=== PATIENT | female | born 1955 | race Caucasian/White ===

== ENCOUNTER 2018-02-12 09:34 | Day surgery (SDC) | payer MEDICARE, BC ==
[~2018-02-12 09:34] MED LIST: FENTANYL CITRATE INJ/PF 100 MCG/2 ML AMPUL ONE; LIDOCAINE 2% INJ-PF (20 MG/ML) 10 ML AMPUL ONE; MIDAZOLAM 2 MG/2 ML INJ ONE; ONDANSETRON HCL INJ/PF 4 MG/2 ML SDV ONE; PROPOFOL INJ 200 MG/20 ML VIAL IV ONE
[2018-02-12 11:09] LABS: ANION GAP 11 (5-19); BLOOD UREA NITROGEN 15 mg/dL (7-20); CALCIUM 9.2 mg/dL (8.4-10.2); CARBON DIOXIDE 28 mmol/L (22-30); CHLORIDE 103 mmol/L (98-107); GLUCOSE 87 mg/dL (75-110); POTASSIUM 4.2 mmol/L (3.6-5.0); SODIUM 142.3 mmol/L (137-145)
[2018-02-12] MEDS ORDERED: PROPOFOL INJ 200 MG/20 ML VIAL IV ONE (12:13)
[2018-02-12] MEDS ORDERED: ONDANSETRON HCL INJ/PF 4 MG/2 ML SDV IV PRN (12:36)
[2018-02-12] MEDS ORDERED: FENTANYL CITRATE INJ/PF 100 MCG/2 ML AMPUL IV PRN ×3 (12:36)
[2018-02-12] MEDS ORDERED: DIPHENHYDRAMINE HCL 50 MG/ML VIAL IV PRN (12:36)
--- NOTE | 2018-02-12 13:54 | Operative Report ---
Operative Report DATE OF SURGERY: 02/12/18 Operative Report: The risks, benefits and alternatives of the procedure including risks of bleeding, perforation requiring surgery are explained to the patient in detail and informed consent is obtained. Patient is brought back to the operating room and placed in the left, lateral decubital position. Timeout was called. Propofol medication is administered. A rectal examination is done which did not reveal any masses, tears or fissures. An Olympus videoscope was inserted into the patient's rectum. The scope was then carefully advanced all the way to the cecum. The cecum was identified by the usual anatomical landmarks including the ileocecal valve as well as the appendiceal office. Photodocumentation is obtained. The scope was then sequentially pulled back via the various segments of the colon including the ascending colon, hepatic flexure, transverse colon, splenic flexure, descending colon and finally into the rectosigmoid portions of the colon. Retroflexion maneuvers performed. The risks benefits and alternatives of the procedure explained to the patient in detail and informed consent is obtained.A GIF Olympus video scope was inserted into the patient's mouth and hypopharynx, the esophagus is identified intubated and insufflated ,the scope was then advanced through the esophagus stomach and duodenum ,retroflexion maneuver is done, the esophagus stomach and first and second portions of the duodenum examined PREOPERATIVE DIAGNOSIS: Iron deficiency anemia. Colorectal cancer screening POSTOPERATIVE DIAGNOSIS: Gastritis status post biopsy rule out Helicobacter pylori. Duodenitis. Right colon inflammation status post biopsy. Internal hemorrhoids. No actively bleeding site OPERATION: Colonoscopy with biopsy. EGD with biopsy SURGEON: RUSS THACKER ANESTHESIA: LMAC TISSUE REMOVED OR ALTERED: As noted above. COMPLICATIONS: None. ESTIMATED BLOOD LOSS: None. INTRAOPERATIVE FINDINGS: As noted above. PROCEDURE: Patient tolerated procedure well. No immediate postprocedure complications are noted. Patient discharged in good condition. Discharge date 02/12/2018. Discharge diet: Regular. Discharge activity: Regular. 2-3 week follow-up to discuss findings. Patient is instructed to call the office or proceed to the emergency room should there be any further problems or questions. We will await on the pathology.
[2018-02-12 13:57] VITALS: BP 123/44
== END 2018-02-12 14:05 | disposition home or self-care (01) ==
LOC: OROUT 09:34
PROVIDERS: ATTEND Internal Medicine Gastroenterology
PROC: 0DB68ZX Excision of Stomach, Via Natural or Artificial Opening Endoscopic, Diagnostic (ICD-10-PCS; principal; 2018-02-12 11:30)
PROC: 0DBE8ZX Excision of Large Intestine, Via Natural or Artificial Opening Endoscopic, Diagnostic (ICD-10-PCS; 2018-02-12 11:30)
DX: Z12.11 Encounter for screening for malignant neoplasm of colon (principal); D50.9 Iron deficiency anemia, unspecified; K29.70 Gastritis, unspecified, without bleeding; K29.80 Duodenitis without bleeding; K52.9 Noninfective gastroenteritis and colitis, unspecified; K64.8 Other hemorrhoids
CPT/HCPCS: 43239; 45380; 36415; 80048; 88305 ×2; J2704; J3490; 813; J2250; J2405; J3010

== ENCOUNTER 2018-02-13 08:58 | Day surgery (SDC) | payer MEDICARE, BC ==
[2018-02-13 09:37] LABS: HEMOGLOBIN 8.2 g/dL (12.0-15.5); MEAN CORPUSCULAR HEMOGLOBIN 36.9 pg (27.0-33.4); MEAN CORPUSCULAR HGB CONC 35.5 g/dL (32.0-36.0); MEAN CORPUSCULAR VOLUME 104 fl (80-97); PLATELET COUNT 271 10^3/uL (150-450); RED BLOOD COUNT 2.21 10^6/uL (3.72-5.28); RED CELL DISTRIBUTION WIDTH 22.2 % (11.5-14.0); WHITE BLOOD COUNT 4.1 10^3/uL (4.0-10.5)
[2018-02-13 09:41] LABS: INTERNATIONAL RATION (INR) 1.06; PROTHROMBIN TIME 14.3 SEC (11.4-15.4)
[2018-02-13 09:42] LABS: PARTIAL THROMBOPLASTIN TIME 29.2 SEC (23.5-35.8)
[2018-02-13] MEDS ORDERED: FENTANYL CITRATE INJ/PF 250 MCG/5 ML AMPULE ONE (11:12)
[2018-02-13] MEDS ORDERED: MIDAZOLAM 2 MG/2 ML INJ ONE (11:12)
[2018-02-13] MEDS ORDERED: LIDOCAINE 1% INJ-PF (10 MG/ML) 30 ML SDV ONE (11:12)
[2018-02-13] MEDS ORDERED: ONDANSETRON 4 MG TAB.RAPDIS ONE (12:31)
--- NOTE | 2018-02-13 12:40 | RADIOLOGY REPORT (SQ) ---
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 TECHNIQUE: CT guided biopsy of the right iliac crest bone marrow performed with conscious sedation. CT Fluoroscopy Time: 3.[address] scanners at this facility use dose modulation, iterative reconstruction, and/or weight based d osing when appropriate to reduce radiation dose to as low as reasonably achievable (ALARA). [facility]: Dose Right [facility]: CareDose [facility]: Dose Right [facility]: Teradose 4D [facility]: Ifinity RADIATION DOSE: mGy. FINDINGS: After obtaining informed consent and explaining the risks and benefits of conscious sedati on,the patient agreed to the procedure. Prior to the procedure, a time out was performed to verify th e patient's identity and planned procedure. IV conscious sedation was administered and physician direction by the registered nurse using 1 millig marcellus of Versed and 50 micrograms of fentanyl. Physiologic monitoring was provided before, during, and after sedation. The total sedation time was 30 minutes. Documentation face to face time, the performing proceduralist, spent monitoring the patient: [address] scanning was performed to localize the percutaneous site for the biopsy approach. After sterile skin prep and local lidocaine for skin and deep tissue anesthesia, a coaxial biopsy nee dle was used to obtain a bone marrow aspirate, and a bone marrow core of tissue. The biopsy tissue wa s received by [facility] lab to be sent out for evaluation. There were no immediate complications. Pathology is pending at the time of dictation. IMPRESSION: CT GUIDED ASPIRATE AND CORE BIOPSY OF THE RIGHT POSTERIOR ILIAC CREST BONE MARROW PERFOR MED WITHOUT IMMEDIATE COMPLICATION. PATHOLOGY PENDING. IV CONSCIOUS SEDATION WITHOUT COMPLICATION. COMMENT: Quality ID 145: Final reports for procedures using fluoroscopy that document radiation exp osure indices, or exposure time and number of fluorographic images (if radiation exposure indices are not available) Patient medication list reviewed: Yes- Quality ID# [id number]:Eligible professional attests to documenting i n the medical record they obtained, updated, or reviewed the patient's current medications.. TECHNICAL DOCUMENTATION: JOB ID: [id number] Quality ID# [id number]: Final reports with documentation of one or more dose reduction techniques (e.g., Aut omated exposure control, adjustment of the mA and/or kV according to patient size, use of iterative r econstruction technique) 2010 [employer]- All Rights Reserved Reading location - IP/workstation name: [email or web address]
--- NOTE | 2018-02-13 12:40 | RADIOLOGY REPORT (SQ) ---
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 TECHNIQUE: CT guided biopsy of the right iliac crest bone marrow performed with conscious sedation. CT Fluoroscopy Time: 3.[address] scanners at this facility use dose modulation, iterative reconstruction, and/or weight based d osing when appropriate to reduce radiation dose to as low as reasonably achievable (ALARA). [facility]: Dose Right [facility]: CareDose [facility]: Dose Right [facility]: Teradose 4D [facility]: [employer] RADIATION DOSE: mGy. FINDINGS: After obtaining informed consent and explaining the risks and benefits of conscious sedati on,the patient agreed to the procedure. Prior to the procedure, a time out was performed to verify th e patient's identity and planned procedure. IV conscious sedation was administered and physician direction by the registered nurse using 1 millig marcellus of Versed and 50 micrograms of fentanyl. Physiologic monitoring was provided before, during, and after sedation. The total sedation time was 30 minutes. Documentation face to face time, the performing proceduralist, spent monitoring the patient: [address] scanning was performed to localize the percutaneous site for the biopsy approach. After sterile skin prep and local lidocaine for skin and deep tissue anesthesia, a coaxial biopsy nee dle was used to obtain a bone marrow aspirate, and a bone marrow core of tissue. The biopsy tissue wa s received by [facility] lab to be sent out for evaluation. There were no immediate complications. Pathology is pending at the time of dictation. IMPRESSION: CT GUIDED ASPIRATE AND CORE BIOPSY OF THE RIGHT POSTERIOR ILIAC CREST BONE MARROW PERFOR MED WITHOUT IMMEDIATE COMPLICATION. PATHOLOGY PENDING. IV CONSCIOUS SEDATION WITHOUT COMPLICATION. COMMENT: Quality ID 145: Final reports for procedures using fluoroscopy that document radiation exp osure indices, or exposure time and number of fluorographic images (if radiation exposure indices are not available) Patient medication list reviewed: Yes- Quality ID# [id number]:Eligible professional attests to documenting i n the medical record they obtained, updated, or reviewed the patient's current medications.. TECHNICAL DOCUMENTATION: JOB ID: [id number] Quality ID# [id number]: Final reports with documentation of one or more dose reduction techniques (e.g., Aut omated exposure control, adjustment of the mA and/or kV according to patient size, use of iterative r econstruction technique) 2010 [employer]- All Rights Reserved Reading location - IP/workstation name: [email or web address]
[2018-02-13 17:58] VITALS: BP 111/54
== END 2018-02-13 14:00 | disposition home or self-care (01) ==
LOC: RAD 08:58
PROVIDERS: ATTEND Internal Medicine Medical Oncology
DX: D46.9 Myelodysplastic syndrome, unspecified (principal); D63.8 Anemia in other chronic diseases classified elsewhere; Z87.891 Personal history of nicotine dependence
CPT/HCPCS: 36415; 85027; 85610; 85730; 38221; 77012; J2250; A9270; J3010; J3490; S0119

== ENCOUNTER 2018-06-19 11:36 | Observation (INO) | payer MEDICARE, BC ==
[2018-06-19] MEDS ORDERED: ASPIRIN 81 MG TABLET, CHEWABLE PO ONE (11:51)
[2018-06-19 12:29] LABS: HEMATOCRIT 26.6 % (36.0-47.0); HEMOGLOBIN 9.2 g/dL (12.0-15.5); MEAN CORPUSCULAR HGB CONC 34.5 g/dL (32.0-36.0); MEAN CORPUSCULAR VOLUME 104 fl (80-97); PLATELET COUNT 273 10^3/uL (150-450); RED BLOOD COUNT 2.55 10^6/uL (3.72-5.28); RED CELL DISTRIBUTION WIDTH 25.4 % (11.5-14.0); WHITE BLOOD COUNT 5.1 10^3/uL (4.0-10.5)
[2018-06-19 12:31] LABS: INTERNATIONAL RATION (INR) 4.45; PROTHROMBIN TIME 44.4 SEC (11.4-15.4)
--- NOTE | 2018-06-19 12:44 | RADIOLOGY REPORT (SQ) ---
EXAM DESCRIPTION: CHEST SINGLE VIEW COMPLETED DATE/TIME: 06/19/2018 12:30 pm REASON FOR STUDY: cp COMPARISON: None. EXAM PARAMETERS: NUMBER OF VIEWS: One view. TECHNIQUE: Single frontal radiographic view of the chest acquired. RADIATION DOSE: NA LIMITATIONS: None. FINDINGS: LUNGS AND PLEURA: No opacities, masses or pneumothorax. No pleural effusion. MEDIASTINUM AND HILAR STRUCTURES: No masses. Contour normal. HEART AND VASCULAR STRUCTURES: Cardiomegaly. Normal vasculature. BONES: No acute findings. HARDWARE: CABG. OTHER: No other significant finding. IMPRESSION: NO ACUTE RADIOGRAPHIC FINDING IN THE CHEST. TECHNICAL DOCUMENTATION: JOB ID: [id number] [employer]- All Rights Reserved Reading location - IP/workstation name: [email or web address]
[2018-06-19 12:47] LABS: ALANINE AMINOTRANSFERASE 19 U/L (9-52); ALBUMIN 3.8 g/dL (3.5-5.0); ALKALINE PHOSPHATASE 43 U/L (38-126); ANION GAP 11 (5-19); ASPARTATE AMINO TRANSFERASE 20 U/L (14-36); BILIRUBIN,DIRECT 0.3 mg/dL (0.0-0.4); BLOOD UREA NITROGEN 21 mg/dL (7-20); CALCIUM 8.5 mg/dL (8.4-10.2); CARBON DIOXIDE 25 mmol/L (22-30); CHLORIDE 103 mmol/L (98-107); GLUCOSE 103 mg/dL (75-110); POTASSIUM 4.4 mmol/L (3.6-5.0); SODIUM 138.9 mmol/L (137-145)
[2018-06-19 12:48] LABS: CREATINE KINASE < 20 U/L (30-135)
[2018-06-19 12:49] LABS: ABSOLUTE LYMPHOCYTES# (MANUAL) 0.3 10^3/uL (0.5-4.7); ABSOLUTE MONOCYTES # (MANUAL) 0.2 10^3/uL (0.1-1.4); ABSOLUTE NEUTROPHILS# (MANUAL) 4.5 10^3/uL (1.7-8.2); ANISOCYTOSIS 3+; BASOPHILS % (MANUAL) 0 % (0-2); EOSINOPHILS % (MANUAL) 1 % (0-6); LYMPHOCYTES % (MANUAL) 6 % (13-45); MONOCYTES % (MANUAL) 4 % (3-13); OVALOCYTES 2+; POIKILOCYTOSIS 2+; SCHISTOCYTES SLIGHT; SEGMENTED NEUTROPHILS % (MAN) 89 % (42-78); TEAR DROP CELLS 1+; TOTAL CELLS COUNTED 100; TOXIC GRANULATION SLIGHT
[2018-06-19 12:50] LABS: HYPOCHROMASIA SLIGHT; PLATELET CLUMPS PRESENT; POLYCHROMASIA SLIGHT
[2018-06-19 12:55] LABS: CREATINE KINASE MB 0.34 ng/mL (<4.55); TROPONIN I < 0.012 ng/mL
--- NOTE | 2018-06-19 12:56 | ER Document Report ---
ED Cardiac - General Chief Complaint: Chest Pain Stated Complaint: CHEST PAIN Notes: Patient arrived by ambulance with chest pains. She was at her oncologist office today receiving IV chemotherapy for MDS, myelodysplasia, pre-leukemic condition. She has received 2 other treatments earlier this week without any problems. She was about fdc through her chemo for today when she began to develop "indigestion" pain in the mid substernal region of the chest. Staff at the office gave her Zofran. She began to feel dizzy, got clammy and pale, felt like she could not take a deep breath. Her blood pressure dropped and she normally runs a low blood pressure anyway. She was nauseated but never vomited. Last normal bowel movement was this morning. Did not have any shortness of breath or difficulty breathing. EMS was called and transported the patient here to the ED. Patient says her symptoms began to feel less and feeling better as she arrived in the emergency department. Currently patient says she is feeling back to close to normal. Patient ate a bowl of raisin bran cereal this morning at 9 AM before going for her scheduled appointment for chemo at 10:00. She was getting the chemo, starting about 1030 and was about fdc through the procedure around 11:00 when her symptoms began. Patient has a history of mitral valve replacement 18 years ago and is on Coumadin. She had rheumatic fever as a child. Her cap maker is Dr. Sami Mendez in [place] [phone]. Patient had ablation therapy for atrial fibrillation in 2014. TRAVEL OUTSIDE OF THE [place] IN LAST 30 DAYS: No - Related Data Allergies/Adverse Reactions: No Known Allergies Allergy (Verified 06/19/18 12:08) Past Medical History - Social History Smoking Status: Never Smoker Chew tobacco use (# tins/day): No Frequency of alcohol use: None Drug Abuse: None Family History: Reviewed & Not Pertinent Patient has suicidal ideation: No Patient has homicidal ideation: No - Past Medical History Cardiac Medical History: Reports: Hx Atrial Fibrillation, Hx Congestive Heart Failure GI Medical History: Reports: Hx Gastroesophageal Reflux Disease Musculoskeletal Medical History: Reports Hx Arthritis - LT SHOULDER Past Surgical History: Reports: Hx Cardiac Surgery - x3 valve replacements, Hx Section - x2, Hx Cholecystectomy, Hx Orthopedic Surgery - left knee - Immunizations Hx Diphtheria, Pertussis, Tetanus Vaccination: - UNSURE Hx Pneumococcal Vaccination: 08/05/17 Review of Systems - Review of Systems Notes: REVIEW OF SYSTEMS: CONSTITUTIONAL : Denies fever. Says she runs a low blood pressure normally, often in the 90s/60s. EENT: Denies eye, ear, nose or mouth or throat pain or other symptoms. CARDIOVASCULAR: See HPI. RESPIRATORY: Denies cough, chest congestion, or shortness of breath. GASTROINTESTINAL: Denies abdominal pain or vomiting, or diarrhea. [place] some nausea but did not vomit. GENITOURINARY: Denies difficulty or painful urinating, urinary frequency, blood in urine. MUSCULOSKELETAL: Denies back or neck pain. Denies joint pain or swelling. SKIN: Denies rash or skin lesions. NEUROLOGICAL: Denies LOC or altered mental status. Denies headache. Denies sensory loss or motor deficits. ALL OTHER SYSTEMS REVIEWED AND NEGATIVE. Physical Exam - Vital signs Vitals: Pulse Ox 99 06/19/18 11:38 Interpretation: Normal Notes: PHYSICAL EXAMINATION: GENERAL: Well-appearing, in no acute distress. Vital signs all normal. HEAD: Atraumatic, normocephalic. EYES: Pupils equal round and reactive to light, extraocular movements intact. ENT: oropharynx clear without exudates. Moist mucous membranes. NECK: Normal range of motion, supple. LUNGS: Breath sounds clear and equal bilaterally. HEART: Regular rate and rhythm without murmurs. ABDOMEN: Soft, nontender. No guarding or rebound. No masses. BACK: No tenderness throughout entire back. EXTREMITIES: Normal range of motion without pain. NEUROLOGICAL: Normal speech, normal gait. Normal sensory, motor, and reflex exams. Awake, alert, and oriented x3. PSYCH: Normal mood, normal affect. SKIN: Warm, dry, no rashes. Course - Re-evaluation Re-evalutation: 06/19/18 17:[address] Acosta, and associate cardiology of Dr. Gardner in [place] and we went over the patient's presentation and, in particular, her EKG. The machine reads her EKG is showing accelerated junctional escape rhythm. She had a similar EKG at the cap maker office a week ago. It was determined that it actually is a sinus rhythm with a very short P waves, almost undetectable. I texted a copy of this patient's EKG to Dr. Acosta who looked at it and call me back and said he was certain that this is also a sinus rhythm not an accelerated junctional rhythm. Dr. Acosta said he was not concerned about this rhythm causing any problems for the patient. 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 Also noted is the patient had ablation therapy for atrial fibrillation. She has had her mitral valve replaced with a mechanical valve 18 years ago and is on long-term Coumadin therapy. 06/19/18 18:21 Patient reevaluated. Blood pressure remains in the 90s but patient is not in shock. Her hemoglobin is low, but it was loerw on a previous CBC in February. I think this is her normal variation of blood pressure for a person only weighs 58 kg. Patient says that she feels much better now that she got some crackers to snack on. Discussed with patient the results of her tests and the fact that she probably has not had a heart attack. However, I still recommended that she be monitored overnight to make sure that she was safe to go home tomorrow. Incidentally, tomorrow is patient's birthday. - Vital Signs Vital signs: Temp Pulse Resp BP Pulse Ox 97.8 F 70 17 131/56 H 100 06/20/18 08:00 06/20/18 08:00 06/20/18 08:00 06/20/18 08:00 06/20/18 08:00 - Laboratory Result Diagrams: 06/20/18 04:39 06/20/18 04:39 Laboratory results interpreted by me: 06/19/18 06/19/18 06/19/18 11:56 11:56 11:56 RBC 2.55 L Hgb 9.2 L Hct 26.6 L MCV 104 H MCH 36.0 H RDW 25.4 H Seg Neuts % (Manual) 89 H Lymphocytes % (Manual) 6 L Abs Lymphs (Manual) 0.3 L PT 44.4 H BUN 21 H Total Bilirubin 2.0 H Creatine Kinase < 20 L Total Protein 6.0 L - Diagnostic Test Radiology results interpreted by me: 06/19/18 17:21 Chest x-ray essentially normal. - EKG Interpretation by Me EKG shows normal: Sinus rhythm Rate: Normal Rhythm: NSR Critical Care Note - Critical Care Note Total time excluding time spent on procedures (mins): 50 Discharge - Discharge Clinical Impression: Chest pain Qualifiers: Chest pain type: unspecified Qualified Code(s): R07.9 - Chest pain, unspecified Condition: Stable Disposition: ADMITTED OBSERVATION Admitting Provider: Hospitalist Unit Admitted: Telemetry
[2018-06-19] MEDS ORDERED: NORMAL SALINE 1000 ML 1,000 ML IV ONE (15:08)
[2018-06-19] MEDS ORDERED: TEMAZEPAM 7.5 MG CAPSULE PO PRN (19:48)
[2018-06-19] MEDS ORDERED: MAG HYDROX/AL HYDROX/SIMETH SUSP 30 ML UDCUP PO PRN (19:48)
[2018-06-19] MEDS ORDERED: ACETAMINOPHEN 325 MG TABLET PO PRN (19:48)
[2018-06-19] MEDS ORDERED: ONDANSETRON HCL INJ/PF 4 MG/2 ML SDV IV PRN (19:48)
[2018-06-19] MEDS ORDERED: NORMAL SALINE 1000 ML 1,000 ML IV PRN (19:48)
[2018-06-19] MEDS ORDERED: PROMETHAZINE HCL 25 MG TABLET PO PRN (19:48)
[2018-06-19] MEDS ORDERED: PANTOPRAZOLE SODIUM 40 MG VIAL IV STA (19:48)
[2018-06-19] MEDS ORDERED: MORPHINE SULFATE 10 MG/ML INJ IV PRN (19:54)
[2018-06-19] MEDS ORDERED: [UNRECOGNIZED DRUG - OTHER] SQ SCH (20:00)
[2018-06-19] MEDS ORDERED: DARBEPOETIN ALFA SQ SCH (20:00)
--- NOTE | 2018-06-19 20:40 | PDOC H&P ---
History of Present Illness Admission Date/PCP: 06/19/18 19:10 CHRIS CRUZ PA-C Patient complains of: Chest pain History of Present Illness: RAGHU JARAMILLO is a 62 year old female with medical history remarkable for coronary artery disease, CHF, mechanical valve on Coumadin, atrial fibrillation. Patient has been recently diagnosed with MDS and started with chemotherapy 2 days ago, the first day she was feeling indigestion like his symptoms and was given Zofran, his symptoms improved. Today she had chemotherapy again around 10:30 in the morning and have white to the chemo and while she was laying down started feeling shortness of breath and chest pain that is started under her right breast radiated to the center of her chest, like an elephant sitting on her chest, symptoms worsen with deep inspiration and was up to 7 out of 10 in intensity. It was associated with dizziness and lightheadedness, at some point the patient felt like passing out, became very pale and her blood pressure was taken, it was 85/50. Denies diaphoresis, was feeling nauseous but did not vomit, has chronic diarrhea and has not changed, denies dysuria, hematuria, frequency, fever, chills. 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 Mendze in [place] [phone]; her last stress test was a little more than a year ago, patient was told that she has the circumflex artery blocked but is too small to have a stent placed/ chronic occlusion. Patient has lost 5 pounds in less than a month. Oncologist First set of troponins negative, EKG unremarkable, and daily given 324 mg of p.o. aspirin, already given Zofran in the oncology clinic. Emergency wrist contacted Dr. Acosta who is analysis with cardiology of Dr. Mendez in [place] and reviewed the patient's presentation and EKG, it was determined that her rhythm was sinus with very small P waves. Tomorrow is patients. She would like to go home early if tests are negative Past Medical History Cardiac Medical History: Reports: Atrial Fibrillation - Paroxysmal, Congestive Heart Failure - EF of apparently 40%, Coronary Artery Disease - Chronic occlusion circumflex artery Neurological Medical History: Reports: Ischemic CVA Malignancy Medical History: Reports: Other - MDS GI Medical History: Reports: Gastroesophageal Reflux Disease Musculoskeltal Medical History: Reports: Arthritis - LT SHOULDER Hematology: Reports: Anemia Past Surgical History Past Surgical History: Reports: Cardiac Catheterization, Section - x2, Cholecystectomy, Coronary Artery Bypass Graft - X3, has a mechanical valve, Orthopedic Surgery - left knee, Other - Cardiac ablation Anterior cervical discectomy Breast lumpectomy C-sectio Social History Smoking Status: Former Smoker - 29 years ago, used to smoke 1-1/2 pack a day Frequency of Alcohol Use: None Hx Recreational Drug Use: No Hx Prescription Drug Abuse: No Past Social History Note: Lives with her who is at the bedside Family History Family History: Reviewed & Not Pertinent Family History: Mother at 77 years old with COPD. Father at 85 years old, history of bladder cancer and quadruple bypass when he was 83 years old, grandmother on his father's side pancreatic cancer, grandmother on her mother's side with bladder cancer Parental Family History Reviewed: Yes - As above Children Family History Reviewed: NA Sibling(s) Family History Reviewed.: NA Medication/Allergy Home Medications: Furosemide [Lasix 40 mg Tablet] 40 mg PO QAM 10/01/13 Potassium Chloride 10 meq PO DAILY 10/01/13 Warfarin Sodium [Coumadin 5 mg Tablet] 4 mg PO QHS 10/01/13 Dofetilide [Tikosyn] 1 tab PO BID 02/11/18 Metoprolol Succinate [Toprol Xl] 25 mg PO BID 02/11/18 Pantoprazole Sodium 40 mg PO ASDIR PRN 02/11/18 Darbepoetin Bhupinder in Polysorbat [Aranesp] 200 mcg SQ [id number] 06/19/18 Irbesartan [Avapro] 150 mg PO QHS 06/19/18 Magnesium Oxide [Magnesium] 500 mg PO DAILY 06/19/18 Allergies/Adverse Reactions: No Known Allergies Allergy (Verified 06/19/18 12:08) Review of Systems Review of Systems: As outlined in the HPI, all others negative Physical Exam Vital Signs: Temp Pulse Resp BP Pulse Ox 97.8 F 65 16 95/55 L 100 06/19/18 12:09 06/19/18 12:09 06/19/18 19:01 06/19/18 19:01 06/19/18 19:01 Additional comments: General appearance: Well-developed, well-nourished, alert and cooperative, and appears to be in no acute distress Head: Normocephalic Eyes: PEERL, EOMI, vision is grossly intact. Ears: External auditory canal and tympanic membranes clear, hearing grossly intact. Nose: No nasal discharge. Throat: Oral cavity and pharynx normal. No inflammation, swelling, exudate or lesions. Neck: Neck supple, nontender without lymphadenopathy, masses or thyromegaly. Cardiac: Normal S1 and S2. No S3, S4 or murmurs. Rhythm is regular. There is no peripheral edema, cyanosis or pallor. Extremities are warm and well perfused. Capillary refill is less than 2 seconds. No carotid bruits. Thorax : No reproducible tenderness to palpation Lungs: Clear to auscultation and percussion without rales, rhonchi, wheezing or diminished breath sounds. Not using accessory muscles. Abdomen: Positive bowel sounds. Soft. Nondistended, nontender. No guarding or rebound. No masses. No hepatosplenomegaly Extremities: No significant deformity or joint abnormality. No edema. Peripheral pulses intact. No varicosities. Neurological: Cranial nerves II through XII grossly intact. Strength and sensation symmetric and intact throughout. Reflexes 2+ throughout. Skin: Skin normal color, texture and turgor with no lesions or eruptions, warm and dry. Psychiatric: The mental examination revealed the patient was oriented to person , place, and time. The patient was able to demonstrate good judgment on recent , without hallucinations, abnormal affect or abnormal behaviors. Results Laboratory Results: 06/19/18 06/19/18 06/19/18 11:56 11:56 11:56 WBC 5.1 RBC 2.55 L Hgb 9.2 L Hct 26.6 L MCV 104 H MCH 36.0 H MCHC 34.5 RDW 25.4 H Plt Count 273 Total Counted 100 Seg Neuts % (Manual) 89 H Lymphocytes % (Manual) 6 L Monocytes % (Manual) 4 Eosinophils % (Manual) 1 Basophils % (Manual) 0 Abs Neuts (Manual) 4.5 Abs Lymphs (Manual) 0.3 L Abs Monocytes (Manual) 0.2 Absolute Eos (Manual) 0.1 Abs Basophils (Manual) 0.0 Toxic Granulation SLIGHT Polychromasia SLIGHT Hypochromasia SLIGHT Anisocytosis 3+ Macrocytosis 2+ PT INR Sodium 138.9 Potassium 4.4 Chloride 103 Carbon Dioxide 25 Anion Gap 11 BUN 21 H Creatinine 0.54 Est GFR ( Amer) > 60 Est GFR (Non-Af Amer) > 60 Glucose 103 Calcium 8.5 Total Bilirubin 2.0 H Direct Bilirubin 0.3 AST 20 ALT 19 Alkaline Phosphatase 43 Creatine Kinase < 20 L CK-MB (CK-2) 0.34 Troponin I < 0.012 Total Protein 6.0 L Albumin 3.8 06/19/18 06/19/18 11:56 16:55 WBC RBC Hgb Hct MCV MCH MCHC RDW Plt Count Total Counted Seg Neuts % (Manual) Lymphocytes % (Manual) Monocytes % (Manual) Eosinophils % (Manual) Basophils % (Manual) Abs Neuts (Manual) Abs Lymphs (Manual) Abs Monocytes (Manual) Absolute Eos (Manual) Abs Basophils (Manual) Toxic Granulation Polychromasia Hypochromasia Anisocytosis Macrocytosis PT 44.4 H INR 4.45 Sodium Potassium Chloride Carbon Dioxide Anion Gap BUN Creatinine Est GFR ( Amer) Est GFR (Non-Af Amer) Glucose Calcium Total Bilirubin Direct Bilirubin AST ALT Alkaline Phosphatase Creatine Kinase CK-MB (CK-2) Troponin I < 0.012 Total Protein Albumin EKG Comments: Normal sinus rhythm with a ventricular rate of 59 bpm Impressions: Chest X-Ray 06/19/18 11:51 IMPRESSION: NO ACUTE RADIOGRAPHIC FINDING IN THE CHEST. Assessment & Plan - Diagnosis (1) Chest pain Qualifiers: Chest pain type: unspecified Qualified Code(s): R07.9 - Chest pain, unspecified Is this a current diagnosis for this admission?: Yes Plan: Patient started with an episode of chest pain or having chemotherapy today, symptoms are atypical and pleuritic-like in nature. Due to her medical history is a was felt safe for her to stay overnight under observation. We will keep the patient under telemetry monitoring, will complete cardiac enzymes x3, will be on nitroglycerin sublingual and IV morphine as needed. Imaging my differentials is secondary to acid reflux. No tenderness to palpation in the thoracic area during my examination and currently patient is chest pain-free. (2) CHF (congestive heart failure) Is this a current diagnosis for this admission?: Yes Plan: As per patient's her ejection fraction is 40%, unclear if this is systolic or diastolic in nature, patient is aware of cardiomegaly. We will continue with her home Lasix, the patient does not seems to be on fluid overload. (3) Paroxysmal A-fib Is this a current diagnosis for this admission?: Yes Plan: Paroxysmal atrial fibrillation on chronic Coumadin, INR here 4.45. Patient takes Coumadin in the evening and we will hold it for tonight and reassess INR in the morning. Due to the fact that she has a mechanical valve her INR will be therapeutic between 2.5-3.5. (4) GERD (gastroesophageal reflux disease) Is this a current diagnosis for this admission?: Yes Plan: This is probably the etiology for her chest pain, patient had an EGD done by Dr. Tavera February 2018 which shows gastritis and duodenitis. I am giving 40 mg of IV metoprolol and 1 dose of Carafate, will be on Maalox as needed. Continue her daily Protonix that she has been taking every other day intead of daily as she read some liver side effects (5) MDS (myelodysplastic syndrome) Is this a current diagnosis for this admission?: Yes (6) Anemia of chronic disease Is this a current diagnosis for this admission?: Yes Plan: Hemoglobin 9.2 and hematocrit 26, this is likely secondary to her MDS, patient denies having any blood transfusion in the past but she was placed on Procrit. (7) Supratherapeutic INR Is this a current diagnosis for this admission?: Yes Plan: We are holding her Coumadin today and reassess INR in the morning. (8) DVT prophylaxis Is this a current diagnosis for this admission?: Yes Plan: On Coumadin - Time Time Spent: 50 to 70 Minutes
[2018-06-19] MEDS: SUCRALFATE 1 GM TABLET PO SCH ×2 (21:22→23:14)
[2018-06-19] MEDS ORDERED: (PENDING PHARMACY ID) (Irbesartan [Avapro] 150 MG) PO SCH (22:00)
[2018-06-19] MEDS ORDERED: LOSARTAN POTASSIUM 25 MG TABLET PO SCH (22:00)
[2018-06-19] MEDS ORDERED: DOFETILIDE 125 MCG CAPSULE PO ONE (22:45)
[2018-06-19] MEDS ORDERED: DOFETILIDE 125 MCG CAPSULE ONE (22:49)
[2018-06-20] MEDS: SUCRALFATE 1 GM TABLET PO SCH (05:31)
[2018-06-20 05:32] LABS: ABSOLUTE LYMPHOCYTES (AUTO) 0.5 10^3/uL (0.5-4.7); ABSOLUTE MONOCYTES (AUTO) 0.2 10^3/uL (0.1-1.4); BASOPHILS % (AUTO) 0.3 % (0-2); HEMATOCRIT 23.7 % (36.0-47.0); HEMOGLOBIN 8.2 g/dL (12.0-15.5); INTERNATIONAL RATION (INR) 4.69; LYMPHOCYTES % (AUTO) 19.3 % (13-45); MEAN CORPUSCULAR HEMOGLOBIN 35.5 pg (27.0-33.4); MEAN CORPUSCULAR HGB CONC 34.8 g/dL (32.0-36.0); MEAN CORPUSCULAR VOLUME 102 fl (80-97); MONOCYTES % (AUTO) 7.5 % (3-13); PLATELET COUNT 260 10^3/uL (150-450); PROTHROMBIN TIME 46.2 SEC (11.4-15.4); RED BLOOD COUNT 2.32 10^6/uL (3.72-5.28); RED CELL DISTRIBUTION WIDTH 24.5 % (11.5-14.0); SEGMENTED NEUTROPHILS % (AUTO) 72.9 % (42-78); TOTAL CELLS COUNTED % (AUTO) 100 %
[2018-06-20 05:42] LABS: ANION GAP 8 (5-19); BLOOD UREA NITROGEN 16 mg/dL (7-20); CALCIUM 8.9 mg/dL (8.4-10.2); CARBON DIOXIDE 25 mmol/L (22-30); CHLORIDE 108 mmol/L (98-107); GLUCOSE 119 mg/dL (75-110); POTASSIUM 5.1 mmol/L (3.6-5.0)
[2018-06-20 05:58] LABS: ACANTHOCYTES 1+; ANISOCYTOSIS 3+; HELMET CELLS 2+; OVALOCYTES 3+; POIKILOCYTOSIS 3+; POLYCHROMASIA 1+; TEAR DROP CELLS 3+; TOXIC GRANULATION 1+
[2018-06-20 05:59] LABS: PLATELET COMMENT ADEQUATE; WHITE BLOOD COUNT 2.7 10^3/uL (4.0-10.5)
[2018-06-20] MEDS ORDERED: SUCRALFATE SUSP 1 GM/10 ML UDCUP PO SCH (08:00)
[2018-06-20] MEDS ORDERED: FUROSEMIDE 40 MG TABLET PO SCH (08:00)
[2018-06-20 08:59] VITALS: BP 131/56
--- NOTE | 2018-06-20 09:21 | PDOC DISCHARGE SUMMARY ---
General - Admit/Disc Date/PCP Admission Date/Primary Care Provider: 06/19/18 19:10 CHRIS CRUZ PA-C Discharge Date: 06/20/18 - Discharge Diagnosis (1) Chest pain Is this a current diagnosis for this admission?: Yes Summary: Since his chest pain is most likely due to esophageal reflux or esophagitis and will be treated by adding Carafate suspension 1 g per 10 mL to be taken as 10 mL before meals and at bedtime. Will be continued for 15 days by my prescription and may be continued indefinitely if desired by her primary care physician upon reevaluation. (2) Supratherapeutic INR Is this a current diagnosis for this admission?: Yes Summary: Raghu's initial INR was 4.45 and on repeat measurement this morning was 4.64. She has been instructed to hold her warfarin (Coumadin) until instructed to resume taking by her primary care physician or [employer] consultant oncologist after her INR reaches the therapeutic range. - Additional Information Resuscitation Status: Full Code Discharge Diet: As Tolerated Discharge Activity: Activity As Tolerated Prescriptions: Sucralfate [Carafate] 1 gm PO ACHS 15 Days #600 oral.susp Home Medications: Furosemide [Lasix 40 mg Tablet] 40 mg PO QAM 10/01/13 Potassium Chloride 10 meq PO DAILY 10/01/13 Warfarin Sodium [Coumadin 5 mg Tablet] 4 mg PO QHS 10/01/13 Dofetilide [Tikosyn] 1 tab PO BID 02/11/18 Metoprolol Succinate [Toprol Xl] 25 mg PO BID 02/11/18 Pantoprazole Sodium 40 mg PO ASDIR PRN 02/11/18 Darbepoetin Bhupinder in Polysorbat [Aranesp] 200 mcg SQ [id number] 06/19/18 Irbesartan [Avapro] 150 mg PO QHS 06/19/18 Magnesium Oxide [Magnesium] 500 mg PO DAILY 06/19/18 Sucralfate [Carafate] 1 gm PO ACHS 15 Days #600 oral.susp 06/20/18 History of Present Illness Patient complains of: Chest pain History of Present Illness: RAGHU JARAMILLO is a 63 year old female who developed chest pain at approximately 10:30 AM on the morning of admission while lying on a bed and receiving chemotherapy. The chest pain was of a moderately severe intensity and a crushing pressure in nature. The pain originated in the right lower chest (submammary) and radiated to the substernal region. Pain was accompanied by mild to moderate dyspnea, dizziness, nausea and lightheadedness. The pain lasted for about a half an hour but resolved in the emergency room after eating some crackers. The patient was noted to have a blood pressure of 85/50 taken by the staff at her oncologist office at the time that she was having her chest pain. She is being treated for myelodysplastic syndrome by her [employer] consultant/ oncologist and her usual blood pressures are in the high 80s to low 100s systolic. Because of the nature and the duration of the pain she was admitted to observation status for further evaluation. Hospital Course Hospital Course: Raghu was admitted to a telemetry bed and had no significant arrhythmias over her hospital course. She had serial cardiac enzymes and EKGs performed which revealed no acute changes consistent with myocardial injury or ischemia. She was started on Carafate as there was a strong suspicion that the chest pain may well have been due to esophagitis. She had no further recurrence of her chest pain and because of her excellent resolution she will be discharged home in improved and stable condition for her birthday. Physical Exam Vital Signs: Temp Pulse Resp BP Pulse Ox 97.5 F 80 20 108/56 L 100 06/20/18 02:36 06/20/18 07:00 06/20/18 00:00 06/20/18 02:36 06/20/18 02:36 Intake & Output 06/18/18 06/19/18 06/20/18 23:59 23:59 23:59 Weight 61.7 kg General appearance: PRESENT: no acute distress, cooperative Head exam: PRESENT: atraumatic, normocephalic Respiratory exam: PRESENT: clear to auscultation gloria, symmetrical, unlabored Cardiovascular exam: PRESENT: RRR. ABSENT: clicks, gallop, rubs Vascular exam: PRESENT: normal capillary refill. ABSENT: pallor GI/Abdominal exam: PRESENT: normal bowel sounds, soft Musculoskeletal exam: PRESENT: ambulatory, full ROM Neurological exam: PRESENT: alert, oriented to person, oriented to place, oriented to time, oriented to situation Psychiatric exam: PRESENT: appropriate affect, normal mood Skin exam: ABSENT: jaundice, rash, urticaria Results Laboratory Results: 06/20/18 04:39 06/20/18 04:39 06/20/18 06/20/18 04:39 04:39 WBC 2.7 L D RBC 2.32 L Hgb 8.2 L Hct 23.7 L MCV 102 H MCH 35.5 H MCHC 34.8 RDW 24.5 H Plt Count 260 Seg Neutrophils % 72.9 Lymphocytes % 19.3 Monocytes % 7.5 Eosinophils % 0.0 Basophils % 0.3 Absolute Neutrophils 2.0 Absolute Lymphocytes 0.5 Absolute Monocytes 0.2 Absolute Eosinophils 0.0 Absolute Basophils 0.0 Sodium 141.0 Potassium 5.1 H Chloride 108 H Carbon Dioxide 25 Anion Gap 8 BUN 16 Creatinine 0.45 L Est GFR ( Amer) > 60 Est GFR (Non-Af Amer) > 60 Glucose 119 H Calcium 8.9 06/19/18 06/20/18 22:39 04:39 Troponin I < 0.012 < 0.012 Impressions: Chest X-Ray 06/19/18 11:51 IMPRESSION: NO ACUTE RADIOGRAPHIC FINDING IN THE CHEST. Qualifiers - * PATIENT BEING DISCHARGED WITH ANY OF THE FOLLOWING DIAGNOSIS: No Plan Discharge Plan: Discharged home in improved and stable condition Time Spent: Greater than 30 Minutes
[2018-06-20] MEDS ORDERED: METOPROLOL SUCCINATE 25 MG TAB.SR.24H PO SCH (10:00)
[2018-06-20] MEDS ORDERED: DOFETILIDE PO SCH (10:00)
[2018-06-20] MEDS ORDERED: ENOXAPARIN SODIUM INJ 40 MG/0.4 ML DISP.SYRIN SUBCUT SCH (10:00)
[2018-06-20] MEDS ORDERED: DOFETILIDE 125 MCG CAPSULE PO SCH ×2 (10:00)
[2018-06-20] MEDS ORDERED: (PENDING PHARMACY ID) (Magnesium Oxide [Magnesium] 500 MG) PO SCH (10:00)
[2018-06-20] MEDS ORDERED: MAGNESIUM OXIDE 400 MG TABLET PO SCH (10:00)
[2018-06-20] MEDS ORDERED: POTASSIUM CHLORIDE 10 MEQ CAPSULE.ER PO SCH (10:00)
[2018-06-20] MEDS ORDERED: LANSOPRAZOLE 30 MG TAB.RAP.DR PO SCH (10:00)
[2018-06-20] MEDS ORDERED: (PENDING PHARMACY ID) (Potassium Chloride [Potassium Chloride] 10 MEQ) PO SCH (10:00)
--- NOTE | 2018-06-20 10:39 | EKG REPORT ---
SEVERITY:- ABNORMAL ECG - SINUS RHYTHM NONSPECIFIC T ABNORMALITIES, ANTERIOR LEADS BORDERLINE PROLONGED QT INTERVAL : Confirmed by: Neto Cote 20-Jun-2018 10:38:30
== END 2018-06-20 10:57 | disposition home or self-care (01) ==
LOC: ER 11:36 → EH 19:10 → 5 21:35
PROVIDERS: ADMIT Internal Medicine; ATTEND Internal Medicine
DX: R07.89 Other chest pain (principal); R79.1 Abnormal coagulation profile; D46.9 Myelodysplastic syndrome, unspecified; R06.02 Shortness of breath; R42 Dizziness and giddiness; I48.0 Paroxysmal atrial fibrillation; I25.10 Atherosclerotic heart disease of native coronary artery without angina pectoris; I50.9 Heart failure, unspecified; R11.0 Nausea; D63.8 Anemia in other chronic diseases classified elsewhere; K52.9 Noninfective gastroenteritis and colitis, unspecified; K21.9 Gastro-esophageal reflux disease without esophagitis; Z79.899 Other long term (current) drug therapy; Z95.2 Presence of prosthetic heart valve; Z95.1 Presence of aortocoronary bypass graft; Z87.891 Personal history of nicotine dependence; Z90.49 Acquired absence of other specified parts of digestive tract; Z98.890 Other specified postprocedural states; Z86.73 Personal history of transient ischemic attack (TIA), and cerebral infarction without residual deficits; Z80.52 Family history of malignant neoplasm of bladder; Z82.49 Family history of ischemic heart disease and other diseases of the circulatory system; Z80.0 Family history of malignant neoplasm of digestive organs; Z86.19 Personal history of other infectious and parasitic diseases; Z79.02 Long term (current) use of antithrombotics/antiplatelets
CPT/HCPCS: 93005; 99291; 96360; 96361; 36415 ×2; 82553; 82550; 85025 ×2; 85610 ×2; 80048; 80053; 84484 ×2; 71045; 93010; G0378 ×3; A9270 ×8; C9113; J7030; S0164

== ENCOUNTER → 2019-01-26 | Outpatient (CLI) | payer MEDICARE, BC ==
--- NOTE | 2019-01-26 18:51 | RADIOLOGY REPORT (SQ) ---
EXAM DESCRIPTION: CHEST PA/LATERAL COMPLETED DATE/TIME: 01/26/2019 5:43 pm REASON FOR STUDY: MILD INTERMITTENT REACTIVE AIRWAY DISEASE WITHOUT COMPLICATION COMPARISON: 06/19/2018 EXAM PARAMETERS: NUMBER OF VIEWS: two views TECHNIQUE: Digital Frontal and Lateral radiographic views of the chest acquired. RADIATION DOSE: NA LIMITATIONS: none FINDINGS: LUNGS AND PLEURA: No opacities, masses or pneumothorax. No pleural effusion. MEDIASTINUM AND HILAR STRUCTURES: No masses or contour abnormalities. HEART AND VASCULAR STRUCTURES: Cardiomegaly. No pulmonary edema. BONES: No acute findings. HARDWARE: Sternotomy wires. Surgical clips. OTHER: No other significant finding. IMPRESSION: Cardiomegaly without pulmonary edema. TECHNICAL DOCUMENTATION: JOB ID: [id number] [employer] All Rights Reserved Reading location - IP/workstation name: [email or web address]
== END ==
LOC: OD 16:57
PROVIDERS: ATTEND Physician Assistant
DX: J45.20 Mild intermittent asthma, uncomplicated (principal); I51.7 Cardiomegaly
CPT/HCPCS: 71046

== ENCOUNTER 2019-01-31 12:25 | Emergency (ER) | payer MEDICARE, BC ==
--- NOTE | 2019-01-31 13:03 | ER Document Report ---
ED Medical Screen (RME) - General Chief Complaint: Breathing Difficulty Stated Complaint: COUGH Time Seen by Provider: 01/31/19 12:55 Primary Care Provider: CHRIS BROWN PA-C [Primary Care Provider] - Follow up as needed Mode of Arrival: Ambulatory Information source: Patient Notes: Patient presents to the emergency department with complaints of possible pneumonia. Patient reports she is been coughing for the past week. She reports a productive cough with limegreen sputum. She had some leftover amoxicillin so she started taking that. When she was evaluated by her provider Ms. Chris brown was placed on omnicef, Tessalon Perles and given an inhaler. She reports her symptoms are worse. Reports chest pain after she coughs a lot. Does have history of a mechanical heart valve. Reports that she is unable to lay flat she has to prop herself up on pillows to sleep. Patient actively coughing. RR even unlabored. I have greeted and performed a rapid initial assessment of this patient. A comprehensive ED assessment and evaluation of the patient, analysis of test results and completion of the medical decision making process will be conducted by additional ED providers. Dictation of this chart was performed using voice recognition software; therefore, there may be some unintended grammatical errors. TRAVEL OUTSIDE OF THE [place] IN LAST 30 DAYS: No - Related Data Allergies/Adverse Reactions: No Known Allergies Allergy (Verified 01/31/19 12:27) Past Medical History - Past Medical History Cardiac Medical History: Reports: Hx Atrial Fibrillation, Hx Congestive Heart Failure, Hx Coronary Artery Disease - Chronic occlusion circumflex artery, Hx Heart Attack Denies: Hx Hypertension Pulmonary Medical History: Denies: Hx Asthma, Hx Bronchitis, Hx COPD, Hx Pneumonia Neurological Medical History: Denies: Hx Cerebrovascular Accident, Hx Seizures Renal/ Medical History: Denies: Hx Peritoneal Dialysis GI Medical History: Reports: Hx Gastroesophageal Reflux Disease Musculoskeltal Medical History: Reports Hx Arthritis - LT SHOULDER Past Surgical History: Reports: Hx Cardiac Catheterization, Hx Cardiac Surgery - x3 valve replacements, Hx Section - x2, Hx Cholecystectomy, Hx Coronary Artery Bypass Graft - X3, has a mechanical valve, Hx Orthopedic Surgery - left knee, Other - Cardiac ablation Anterior cervical discectomy Breast lumpectomy C- sectio - Immunizations Hx Diphtheria, Pertussis, Tetanus Vaccination: - UNSURE History of Influenza Vaccine for 05/2017 - 10/2017 Season: Yes Influenza Administration Date for 05/2017 - 10/2017 Season: 06/05/18 Physical Exam - Vital signs Vitals: Temp Pulse Resp BP Pulse Ox 98.4 F 84 18 110/66 98 01/31/19 12:35 01/31/19 12:35 01/31/19 12:35 01/31/19 12:35 01/31/19 12:35 Course - Vital Signs Vital signs: Temp Pulse Resp BP Pulse Ox 98.4 F 84 18 110/66 98 01/31/19 12:35 01/31/19 12:35 01/31/19 12:35 01/31/19 12:35 01/31/19 12:35 Doctor's Discharge - Discharge Referrals: CHRIS BROWN PA-C [Primary Care Provider] - Follow up as needed
[2019-01-31 13:29] LABS: ABSOLUTE BASOPHILS # (AUTO) 0.1 10^3/uL (0.0-0.2); ABSOLUTE EOSINOPHILS # (AUTO) 0.1 10^3/uL (0.0-0.6); ABSOLUTE LYMPHOCYTES (AUTO) 1.2 10^3/uL (0.5-4.7); ABSOLUTE MONOCYTES (AUTO) 0.5 10^3/uL (0.1-1.4); ABSOLUTE NEUT (AUTO) 6.1 10^3/uL (1.7-8.2); BASOPHILS % (AUTO) 0.8 % (0-2); EOSINOPHILS % (AUTO) 1.6 % (0-6); HEMATOCRIT 29.4 % (36.0-47.0); HEMOGLOBIN 10.1 g/dL (12.0-15.5); LYMPHOCYTES % (AUTO) 14.8 % (13-45); MEAN CORPUSCULAR HEMOGLOBIN 34.8 pg (27.0-33.4); MEAN CORPUSCULAR HGB CONC 34.4 g/dL (32.0-36.0); MEAN CORPUSCULAR VOLUME 101 fl (80-97); MONOCYTES % (AUTO) 6.4 % (3-13); PLATELET COUNT 459 10^3/uL (150-450); SEGMENTED NEUTROPHILS % (AUTO) 76.4 % (42-78); TOTAL CELLS COUNTED % (AUTO) 100 %
[2019-01-31 13:42] LABS: AMORPHOUS SEDIMENT,URINE TRACE /HPF; APPEARANCE,URINE TURBID; BILIRUBIN,URINE NEGATIVE (NEGATIVE); COLOR,URINE YELLOW; GLUCOSE, URINE 50 mg/dL (NEGATIVE); KETONES,URINE 20 mg/dL (NEGATIVE); LEUKOCYTE ESTERASE,URINE NEGATIVE (NEGATIVE); NITRITE,URINE NEGATIVE (NEGATIVE); PROTEIN,URINE 30 mg/dL (NEGATIVE); UROBILINOGEN,URINE NEGATIVE mg/dL (<2.0)
[2019-01-31 13:49] LABS: ALANINE AMINOTRANSFERASE 25 U/L (9-52); ALBUMIN 4.8 g/dL (3.5-5.0); ALKALINE PHOSPHATASE 57 U/L (38-126); ANION GAP 9 (5-19); ASPARTATE AMINO TRANSFERASE 25 U/L (14-36); BILIRUBIN,DIRECT 0.2 mg/dL (0.0-0.4); BILIRUBIN,TOTAL 1.5 mg/dL (0.2-1.3); BLOOD UREA NITROGEN 12 mg/dL (7-20); CALCIUM 9.3 mg/dL (8.4-10.2); CARBON DIOXIDE 29 mmol/L (22-30); CHLORIDE 100 mmol/L (98-107); GLUCOSE 89 mg/dL (75-110); POTASSIUM 4.5 mmol/L (3.6-5.0); SODIUM 138.3 mmol/L (137-145); TOTAL PROTEIN 7.2 g/dL (6.3-8.2)
[2019-01-31 14:09] LABS: ANISOCYTOSIS 3+; OVALOCYTES 1+; PLATELET COMMENT ADEQUATE; POIKILOCYTOSIS 2+; POLYCHROMASIA 1+; TEAR DROP CELLS 1+
--- NOTE | 2019-01-31 14:15 | RADIOLOGY REPORT (SQ) ---
EXAM DESCRIPTION: CHEST 2 VIEWS COMPLETED DATE/TIME: 01/31/2019 1:45 pm REASON FOR STUDY: worsening cough COMPARISON: 01/26/2019 EXAM PARAMETERS: NUMBER OF VIEWS: two views TECHNIQUE: Digital Frontal and Lateral radiographic views of the chest acquired. RADIATION DOSE: NA LIMITATIONS: none FINDINGS: LUNGS AND PLEURA: No opacities, masses or pneumothorax. No pleural effusion. MEDIASTINUM AND HILAR STRUCTURES: No masses or contour abnormalities. HEART AND VASCULAR STRUCTURES: Cardiomegaly. BONES: No acute findings. HARDWARE: None in the chest. OTHER: No other significant finding. IMPRESSION: Cardiomegaly without acute abnormality of the lungs. TECHNICAL DOCUMENTATION: JOB ID: [id number] [employer]- All Rights Reserved Reading location - IP/workstation name: [email or web address]
--- NOTE | 2019-01-31 14:49 | ER Document Report ---
ED General - General Chief Complaint: Breathing Difficulty Stated Complaint: COUGH Time Seen by Provider: 01/31/19 12:55 Primary Care Provider: CHRIS CRUZ PA-C [Primary Care Provider] - Follow up as needed Mode of Arrival: Ambulatory TRAVEL OUTSIDE OF THE [place] IN LAST 30 DAYS: No - HPI Notes: Patient is a 63-year-old female that presents to the emergency department for chief complaint of cough and congestion. Patient states that for the last 2 weeks she has had sinus congestion and cough. She states that started with a runny nose and sore throat and progressed into a productive cough. She reports a green sputum production. She states she has seen her primary care doctor who started her on Omnicef, Tessalon Perles, and albuterol. She states she does get some relief after taking the albuterol but denies any change in the sputum production. She presented today for chest x-ray stating that she had one last week but they have been unable to get the results and she is concerned she may have pneumonia. She denies chest pain, fevers and chills. Patient also states that when she woke up this morning she had bilateral itchy eyes with copious clear drainage. Past Medical History: Hypertension Past Surgical History: Mechanical heart valve replacement Social History: Denies tobacco, drug, and alcohol use Family History: Reviewed and noncontributory for presenting illness Allergies: Reviewed, see documented allergy list. REVIEW OF SYSTEMS: CONSTITUTIONAL : No fever No chills No diaphoresis No recent illness EENT: No vision changes Watery eyes congestion sore throat CARDIOVASCULAR: No chest pain No palpitations RESPIRATORY: shortness of breath cough No difficulty breathing GASTROINTESTINAL: No abdominal pain No nausea No vomiting No diarrhea GENITOURINARY: No dysuria No hematuria No difficulty urinating MUSCULOSKELETAL: No back pain No leg pain No arm pain SKIN: No rashes No lesions LYMPHATIC: No swollen, enlarged glands. NEUROLOGICAL: No lightheadedness No headache No weakness No paresthesias PSYCHIATRIC: No anxiety No depression PHYSICAL EXAMINATION: Vital signs reviewed, nursing noted reviewed. GENERAL: Well-appearing, well-nourished and in no acute distress. HEAD: Atraumatic, normocephalic. EYES: Clear bilateral eye drainage, extraocular movements intact, sclera anicteric, conjunctiva are injected bilaterally ENT: Bilateral nasal mucosal edema with rhinorrhea, no sinus tenderness to percussion, oropharynx clear without exudates. Moist mucous membranes. NECK: Normal range of motion, supple without lymphadenopathy LUNGS: Breath sounds mild end expiratory wheezing to auscultation bilaterally and equal. No tachypnea or accessory muscle use HEART: Regular rate and rhythm. +2/4 bilateral radial pulses ABDOMEN: Soft, nontender, normoactive bowel sounds. No rebound, guarding, or rigidity. No masses appreciated. EXTREMITIES: Nontender, good range of motion, no pitting or edema. NEUROLOGICAL: No focal neurological deficits. Moves all extremities spontaneously Motor and sensory grossly intact on exam. PSYCH: Normal mood, normal affect. SKIN: Warm, Dry, normal turgor, no rashes or lesions noted on exposed skin - Related Data Allergies/Adverse Reactions: No Known Allergies Allergy (Verified 01/31/19 12:27) Past Medical History - General Information source: Patient - Social History Smoking Status: Unknown if Ever Smoked Family History: Reviewed & Not Pertinent Patient has suicidal ideation: No Patient has homicidal ideation: No - Past Medical History Cardiac Medical History: Reports: Hx Atrial Fibrillation, Hx Congestive Heart Failure, Hx Coronary Artery Disease - Chronic occlusion circumflex artery, Hx Heart Attack Denies: Hx Hypertension Pulmonary Medical History: Denies: Hx Asthma, Hx Bronchitis, Hx COPD, Hx Pneumonia Neurological Medical History: Denies: Hx Cerebrovascular Accident, Hx Seizures Renal/ Medical History: Denies: Hx Peritoneal Dialysis GI Medical History: Reports: Hx Gastroesophageal Reflux Disease Musculoskeletal Medical History: Reports Hx Arthritis - LT SHOULDER Past Surgical History: Reports: Hx Cardiac Catheterization, Hx Cardiac Surgery - x3 valve replacements, Hx Section - x2, Hx Cholecystectomy, Hx Coronary Artery Bypass Graft - X3, has a mechanical valve, Hx Orthopedic Surgery - left knee, Other - Cardiac ablation Anterior cervical discectomy Breast lumpectomy C- sectio - Immunizations Hx Diphtheria, Pertussis, Tetanus Vaccination: - UNSURE Hx Pneumococcal Vaccination: 08/05/17 Physical Exam - Vital signs Vitals: Temp Pulse Resp BP Pulse Ox 98.4 F 84 18 110/66 98 01/31/19 12:35 01/31/19 12:35 01/31/19 12:35 01/31/19 12:35 01/31/19 12:35 Course - Re-evaluation Re-evalutation: 01/31/19 14:46 Vitals reviewed. Nursing notes reviewed. Patient is well-appearing and in no respiratory distress. She is oxygenating on room air. Her EKG shows no acute ischemic changes. She is not complaining of any chest pain and has a negative troponin. At this time I do not suspect ACS in this patient. Chest x-ray shows no underlying pneumonia. She has no leukocytosis or fever. Patient is currently on Omnicef, Tessalon Perles, and albuterol which I encouraged her to take as directed when her physician prescribed them. Patient does have bilateral itchy watery eyes consistent with seasonal allergies and it was advised she get [id number] allergy eyedrops as well as antihistamines. Patient has an appointment on Saturday with her PCP which she will keep for follow-up. She will return for new or worsening symptoms. She is stable at discharge. Laboratory 01/31/19 01/31/19 01/31/19 13:10 13:10 13:10 WBC 8.0 RBC 2.90 L Hgb 10.1 L Hct 29.4 L MCV 101 H MCH 34.8 H MCHC 34.4 RDW 26.0 H Plt Count 459 H Seg Neutrophils % 76.4 Lymphocytes % 14.8 Monocytes % 6.4 Eosinophils % 1.6 Basophils % 0.8 Absolute Neutrophils 6.1 Absolute Lymphocytes 1.2 Absolute Monocytes 0.5 Absolute Eosinophils 0.1 Absolute Basophils 0.1 Platelet Comment ADEQUATE Polychromasia 1+ Poikilocytosis 2+ Anisocytosis 3+ Macrocytosis 1+ Tear Drop Cells 1+ Ovalocytes 1+ Sodium 138.3 Potassium 4.5 Chloride 100 Carbon Dioxide 29 Anion Gap 9 BUN 12 Creatinine 0.61 Est GFR ( Amer) > 60 Est GFR (Non-Af Amer) > 60 Glucose 89 Calcium 9.3 Total Bilirubin 1.5 H Direct Bilirubin 0.2 Neonat Total Bilirubin Not Reportable Neonat Direct Bilirubin Not Reportable Neonat Indirect Bili Not Reportable AST 25 ALT 25 Alkaline Phosphatase 57 NT-Pro-B Natriuret Pep 834 Total Protein 7.2 Albumin 4.8 Urine Color Urine Appearance Urine pH Ur Specific [place] Urine Protein Urine Glucose (UA) Urine Ketones Urine Blood Urine Nitrite Urine Bilirubin Urine Urobilinogen Ur Leukocyte Esterase Urine WBC (Auto) Urine RBC (Auto) Squamous Epi Cells Auto Amorphous Sediment Auto Urine Mucus (Auto) Urine Ascorbic Acid 01/31/19 13:10 WBC RBC Hgb Hct MCV MCH MCHC RDW Plt Count Seg Neutrophils % Lymphocytes % Monocytes % Eosinophils % Basophils % Absolute Neutrophils Absolute Lymphocytes Absolute Monocytes Absolute Eosinophils Absolute Basophils Platelet Comment Polychromasia Poikilocytosis Anisocytosis Macrocytosis Tear Drop Cells Ovalocytes Sodium Potassium Chloride Carbon Dioxide Anion Gap BUN Creatinine Est GFR ( Amer) Est GFR (Non-Af Amer) Glucose Calcium Total Bilirubin Direct Bilirubin Neonat Total Bilirubin Neonat Direct Bilirubin Neonat Indirect Bili AST ALT Alkaline Phosphatase NT-Pro-B Natriuret Pep Total Protein Albumin Urine Color YELLOW Urine Appearance TURBID Urine pH 5.0 Ur Specific [place] 1.030 Urine Protein 30 H Urine Glucose (UA) 50 H Urine Ketones 20 H Urine Blood NEGATIVE Urine Nitrite NEGATIVE Urine Bilirubin NEGATIVE Urine Urobilinogen NEGATIVE Ur Leukocyte Esterase NEGATIVE Urine WBC (Auto) 3 Urine RBC (Auto) 2 Squamous Epi Cells Auto 1 Amorphous Sediment Auto TRACE Urine Mucus (Auto) MANY Urine Ascorbic Acid NEGATIVE Chest X-Ray 01/31/19 13:00 IMPRESSION: Cardiomegaly without acute abnormality of the lungs. - Vital Signs Vital signs: Temp Pulse Resp BP Pulse Ox 98.4 F 84 18 110/66 98 01/31/19 12:35 01/31/19 12:35 01/31/19 12:35 01/31/19 12:35 01/31/19 12:35 - Laboratory Result Diagrams: 01/31/19 13:10 01/31/19 13:10 Laboratory results interpreted by me: 01/31/19 01/31/19 01/31/19 13:10 13:10 13:10 RBC 2.90 L Hgb 10.1 L Hct 29.4 L MCV 101 H MCH 34.8 H RDW 26.0 H Plt Count 459 H Total Bilirubin 1.5 H Urine Protein 30 H Urine Glucose (UA) 50 H Urine Ketones 20 H - EKG Interpretation by Me Additional EKG results interpreted by me: 01/31/19 14:47 Interpreted by myself 1336: Normal sinus rhythm, rate 74, normal axis, no ectopy, no STEMI, no significant change from 06/19/2018 Discharge - Discharge Clinical Impression: Seasonal allergies, Bronchitis Allergic conjunctivitis Qualifiers: Laterality: bilateral Qualified Code(s): H10.13 - Acute atopic conjunctivitis, bilateral Condition: Stable Disposition: HOME, SELF-CARE Instructions: Conjunctivitis, Allergic, Bronchitis With Bronchospasm (Wheezing) ([facility]) Additional Instructions: Please return to the emergency department if you have any worsening, or concern of your symptoms. Please return to the emergency department if you develop chest pain, difficulty breathing, severe abdominal pain, or ongoing vomiting. Please follow-up with your primary care physician in 2-3 days and any other recommended physicians. If prescribed, take all medications as directed. If you have any questions or concerns do not hesitate to return the emergency department for evaluation. Use your albuterol inhaler 2 puffs every 4 hours for coughing and shortness of breath Continue taking all medications as prescribed by your primary care provider begin taking [id number] Claritin or Zyrtec for your allergy symptoms. Referrals: CHRIS CRUZ PA-C [Primary Care Provider] - 02/02/19
[2019-01-31 15:20] VITALS: BP 104/52
--- NOTE | 2019-02-01 00:06 | EKG REPORT ---
SEVERITY:- BORDERLINE ECG - SINUS RHYTHM BORDERLINE T ABNORMALITIES, ANTERIOR LEADS BORDERLINE PROLONGED QT INTERVAL : Confirmed by: Neto Cote 01-Feb-2019 00:05:11
== END 2019-01-31 15:21 | disposition home or self-care (01) ==
LOC: ER 12:25
DX: J40 Bronchitis, not specified as acute or chronic (principal); H10.13 Acute atopic conjunctivitis, bilateral; J30.2 Other seasonal allergic rhinitis; R05 Cough; R09.81 Nasal congestion; R09.89 Other specified symptoms and signs involving the circulatory and respiratory systems; J02.9 Acute pharyngitis, unspecified; I10 Essential (primary) hypertension
CPT/HCPCS: 36415; 71046; 80053; 81001; 83880; 85025; 93005; 93010; 99284

== ENCOUNTER → 2019-08-12 | Outpatient (CLI) | payer MEDICARE, BC ==
--- NOTE | 2019-08-12 17:19 | RADIOLOGY REPORT (SQ) ---
EXAM DESCRIPTION: KNEE LEFT 3 VIEWS COMPLETED DATE/TIME: 08/12/2019 3:11 pm REASON FOR STUDY: PAIN IN LEFT KNEE M25.562 PAIN IN LEFT KNEE COMPARISON: None. NUMBER OF VIEWS: Three views. TECHNIQUE: AP, lateral, and sunrise patella radiographic images acquired of the left knee. LIMITATIONS: None. FINDINGS: MINERALIZATION: Normal. BONES: No acute fracture or dislocation. No worrisome bone lesions. JOINT: No effusion. SOFT TISSUES: No soft tissue swelling. No radio-opaque foreign body. OTHER: No other significant finding. IMPRESSION: NEGATIVE STUDY OF THE LEFT KNEE. NO RADIOGRAPHIC EVIDENCE OF ACUTE INJURY. TECHNICAL DOCUMENTATION: JOB ID: [id number] [employer]- All Rights Reserved Reading location - IP/workstation name: [email or web address]
== END ==
LOC: OD 14:55
PROVIDERS: ATTEND Physician Assistant
DX: M25.562 Pain in left knee (principal)

== ENCOUNTER 2019-10-29 08:30 | Emergency (ER) | payer MEDICARE, BC ==
[2019-10-29 09:04] LABS: ABSOLUTE BASOPHILS # (AUTO) 0.1 10^3/uL (0.0-0.2); ABSOLUTE EOSINOPHILS # (AUTO) 0.2 10^3/uL (0.0-0.6); ABSOLUTE MONOCYTES (AUTO) 0.4 10^3/uL (0.1-1.4); ABSOLUTE NEUT (AUTO) 4.5 10^3/uL (1.7-8.2); BASOPHILS % (AUTO) 1.2 % (0-2); EOSINOPHILS % (AUTO) 2.8 % (0-6); HEMATOCRIT 26.3 % (36.0-47.0); LYMPHOCYTES % (AUTO) 15.9 % (13-45); MEAN CORPUSCULAR HEMOGLOBIN 33.8 pg (27.0-33.4); MEAN CORPUSCULAR HGB CONC 34.3 g/dL (32.0-36.0); MEAN CORPUSCULAR VOLUME 99 fl (80-97); MONOCYTES % (AUTO) 6.2 % (3-13); PLATELET COUNT 260 10^3/uL (150-450); RED BLOOD COUNT 2.66 10^6/uL (3.72-5.28); SEGMENTED NEUTROPHILS % (AUTO) 73.9 % (42-78); TOTAL CELLS COUNTED % (AUTO) 100 %; WHITE BLOOD COUNT 6.2 10^3/uL (4.0-10.5)
--- NOTE | 2019-10-29 09:16 | RADIOLOGY REPORT (SQ) ---
EXAM DESCRIPTION: CHEST SINGLE VIEW COMPLETED DATE/TIME: 10/29/2019 9:02 am REASON FOR STUDY: bed 12 cp COMPARISON: 01/31/2019 EXAM PARAMETERS: NUMBER OF VIEWS: One view. TECHNIQUE: Single frontal radiographic view of the chest acquired. RADIATION DOSE: NA LIMITATIONS: None. FINDINGS: LUNGS AND PLEURA: No opacities, masses or pneumothorax. No pleural effusion. MEDIASTINUM AND HILAR STRUCTURES: No masses. Contour normal. HEART AND VASCULAR STRUCTURES: The heart is enlarged. No failure. BONES: No acute findings. HARDWARE: Sternotomy wires are in place. OTHER: No other significant finding. IMPRESSION: Cardiomegaly unchanged. No failure or consolidation. TECHNICAL DOCUMENTATION: JOB ID: [id number] [employer]- All Rights Reserved Reading location - IP/workstation name: [email or web address]
[2019-10-29 09:24] LABS: ANISOCYTOSIS 4+; OVALOCYTES 1+; POIKILOCYTOSIS 2+; SCHISTOCYTES SLIGHT; TEAR DROP CELLS 1+
[2019-10-29 09:25] LABS: PLATELET COMMENT ADEQUATE
[2019-10-29 09:26] LABS: ALBUMIN 3.8 g/dL (3.5-5.0); ALKALINE PHOSPHATASE 43 U/L (38-126); ANION GAP 5 (5-19); ASPARTATE AMINO TRANSFERASE 22 U/L (14-36); BILIRUBIN,DIRECT 0.2 mg/dL (0.0-0.4); BILIRUBIN,TOTAL 1.4 mg/dL (0.2-1.3); BLOOD UREA NITROGEN 19 mg/dL (7-20); CALCIUM 8.2 mg/dL (8.4-10.2); CARBON DIOXIDE 27 mmol/L (22-30); CHLORIDE 105 mmol/L (98-107); GLUCOSE 90 mg/dL (75-110); POTASSIUM 4.2 mmol/L (3.6-5.0); TOTAL PROTEIN 6.2 g/dL (6.3-8.2)
[2019-10-29 09:28] LABS: CREATINE KINASE < 20 U/L (30-135)
[2019-10-29 09:43] LABS: TROPONIN I < 0.012 ng/mL
[2019-10-29] MEDS ORDERED: METHOCARBAMOL INJ/PF 1000 MG/10 ML SDV IV ONE (10:12)
[2019-10-29] MEDS ORDERED: NORMAL SALINE 1000 ML 1,000 ML IV ONE (10:13)
[2019-10-29] MEDS ORDERED: MORPHINE SULFATE 10 MG/ML INJ IV ONE (10:14)
[2019-10-29] MEDS ORDERED: ONDANSETRON HCL INJ/PF 4 MG/2 ML SDV IV ONE (10:14)
--- NOTE | 2019-10-29 11:20 | ER Document Report ---
Entered by JAYESH HARRIS SCRIBE 10/29/19 1023 Acting as scribe for:RHODA PALMER MD ED General - General Chief Complaint: Chest Pain Stated Complaint: CHEST PAIN Time Seen by Provider: 10/29/19 09:55 Primary Care Provider: CHRIS CRUZ PA-C [Primary Care Provider] - Follow up as needed Information source: Patient Notes: This 64-year-old female patient presents to the emergency department today with complaints of chest pain that woke her up from sleeping at 5:30 AM this morning. Patient states that she was recently put on Flexeril for a back strain and she took that last night at 11:30 PM and went to bed seemingly fine other than her back pain. Patient states at 4 AM this morning she woke up and was coughing so she took her cough medication (guaifenesin) and Tylenol and then went back to bed. Patient called EMS when she could not get this chest pain to go away. Patient states she initially thought it could be reflux so she burped but got no relief. Patient was given nitroglycerin by EMS which brought her pain from a 10/10 to a 5/10 but she became hypotensive so the nitro drip was stopped. Patient states she had numbness and tingling that radiated down her left arm into her left fingers as well. Patient denies any diaphoresis, shortness of b reath, nausea, or vomiting. Patient was prescribed amoxicillin yesterday for what sounds like bronchitis but she states she has not started taking it yet. TRAVEL OUTSIDE OF THE [place] IN LAST 30 DAYS: No - Related Data Allergies/Adverse Reactions: No Known Allergies Allergy (Verified 01/31/19 12:27) Home Medications: Coumadin. Losartan Past Medical History - General Information source: Patient - Social History Smoking Status: Never Smoker Cigarette use (# per day): No Frequency of alcohol use: None Drug Abuse: None Lives with: Family Family History: Reviewed & Not Pertinent Patient has suicidal ideation: No Patient has homicidal ideation: No - Past Medical History Cardiac Medical History: Reports: Hx Atrial Fibrillation, Hx Congestive Heart Failure, Hx Coronary Artery Disease - Chronic occlusion circumflex artery, Hx Heart Attack GI Medical History: Reports: Hx Gastroesophageal Reflux Disease Musculoskeletal Medical History: Reports Hx Arthritis - LT SHOULDER Past Surgical History: Reports: Hx Cardiac Catheterization, Hx Cardiac Surgery - x3 valve replacements, Hx Section - x2, Hx Cholecystectomy, Hx Coronary Artery Bypass Graft - X3, has a mechanical valve, Hx Orthopedic Surgery - left knee, Other - Cardiac ablation Anterior cervical discectomy Breast lumpectomy C- sectio - Immunizations Hx Diphtheria, Pertussis, Tetanus Vaccination: - UNSURE Hx Pneumococcal Vaccination: 08/05/17 Review of Systems - Review of Systems Constitutional: denies: Fever EENT: No symptoms reported Cardiovascular: See HPI, Chest pain Respiratory: See HPI, Cough. denies: Short of breath Gastrointestinal: No symptoms reported Genitourinary: No symptoms reported Female Genitourinary: No symptoms reported Musculoskeletal: No symptoms reported Skin: No symptoms reported Hematologic/Lymphatic: No symptoms reported Neurological/Psychological: No symptoms reported -: Yes All other systems reviewed and negative Physical Exam - Vital signs Vitals: Resp Pulse Ox 18 100 10/29/19 08:53 10/29/19 08:53 - Notes Notes: Physical Exam: General: Alert, appears well. HEENT: Normocephalic. Atraumatic. PERRL. Extraocular movements intact. Oropharynx clear. Neck: Supple. Non-tender. Respiratory: No respiratory distress. Clear and equal breath sounds bilaterally. No chest wall tenderness with palpation. Cardiovascular: Regular rate and rhythm. Mechanical click heard consistent with prosthetic mitral valve. Abdominal: Normal Inspection. Non-tender. No distension. Normal Bowel Sounds. Back: Complains of back pain when sitting up for lung auscultation. Very tender to palpate the right sacral region. There is no tenderness over the lumbar and sacral spinous processes. Extremities: Moves all four extremities. Upper extremities: Normal inspection. Normal ROM. Lower extremities: Normal inspection. No edema. Normal ROM. Neurological: Normal cognition. AAOx4. Normal speech. Psychological: Normal affect. Normal Mood. Skin: Warm. Dry. Normal color. Course - Re-evaluation Re-evalutation: 10/29/19 12:41 The patient's epigastric and lower subxiphoid region discomfort continues. She has an EKG that does not show acute changes, and 2- troponins. We will try GI cocktail and see if that makes a difference in her symptoms. 10/29/19 13:37 Patient symptoms did not improve following GI cocktail. She states that she was wondering if it might be reflux, but it did not improve when she burped. She does take Protonix every day. - Vital Signs Vital signs: Temp Pulse Resp BP Pulse Ox 15 112/62 99 10/29/19 11:31 10/29/19 11:31 10/29/19 11:31 - Laboratory Result Diagrams: 10/29/19 08:46 10/29/19 08:46 Laboratory results interpreted by me: 10/29/19 10/29/19 08:46 08:46 RBC 2.66 L Hgb 9.0 L Hct 26.3 L MCV 99 H MCH 33.8 H RDW 29.0 H Calcium 8.2 L Total Bilirubin 1.4 H Creatine Kinase < 20 L Total Protein 6.2 L - EKG Interpretation by Me EKG shows normal: Sinus rhythm, [place], QRS Complexes. abnormal: Intervals - Borderline prolonged QT interval, ST-T Waves - Borderline anterior T abnormalities Rate: Normal - 69 Rhythm: NSR When compared to previous EKG there are: No significant change Discharge - Discharge Clinical Impression: GERD (gastroesophageal reflux disease) Qualifiers: Esophagitis presence: esophagitis presence not specified Qualified Code(s): K21.9 - Gastro-esophageal reflux disease without esophagitis Strain, sacral Qualifiers: Encounter type: initial encounter Qualified Code(s): S39.012A - Strain of muscle, fascia and tendon of lower back, initial encounter Condition: Stable Disposition: HOME, SELF-CARE Additional Instructions: Reflux Disease (GERD) Gastro-Esophageal Reflux Disease (GERD) is caused by stomach acid refluxing back up into the esophagus. The valve at the end of the esophagus may be weak. This is common in persons with a hiatal hernia. GERD symptoms can include indigestion, chest pain, heartburn, or food "sticking." Certain foods, alcohol, and aspirin can make GERD worse. Treatment depends on the severity. Usually, antacids or acid-suppressing medicines are used. When the esophagus is acutely inflamed, the physician will often prescribe membrane-protective drugs such as Carafate. Some patients benefit from medication such as Reglan that tightens the valve at the top of the stomach. Avoid those foods that bring on your symptoms. For many people, these foods are coffee, chocolate, onions, garlic, and carbonated drinks. Don't use alcohol, aspirin, caffeine, or tobacco. Don't eat late at night -- within 4 hours of bedtime. Don't over-eat. If necessary, elevate the head of your bed about 4 inches so that stomach acid will not roll up into your esophagus. Call the doctor if you develop severe chest pain, inability to swallow fluids, fever, or worsening symptoms. Your epigastric and lower chest pain today seems to be caused by gastroesophageal reflux. Eat a bland diet. Continue your Protonix. Take antacids between meals and at bedtime. Follow-up with your primary care provider if not improving. RETURN TO THE EMERGENCY ROOM IF ANY NEW OR WORSENING SYMPTOMS. Referrals: CHRIS CRUZ PA-C [Primary Care Provider] - Follow up as needed I personally performed the services described in the documentation, reviewed and edited the documentation which was dictated to the scribe in my presence, and it accurately records my words and actions.
[2019-10-29] MEDS ORDERED: MAG HYDROX/AL HYDROX/SIMETH SUSP 30 ML UDCUP PO ONE (12:40)
[2019-10-29] MEDS ORDERED: LIDOCAINE 2% VISCOUS SOLN 15 ML UDCUP PO ONE (12:40)
[2019-10-29 13:54] VITALS: BP 107/67
--- NOTE | 2019-10-29 19:53 | EKG REPORT ---
SEVERITY:- BORDERLINE ECG - SINUS RHYTHM BORDERLINE T ABNORMALITIES, ANTERIOR LEADS BORDERLINE PROLONGED QT INTERVAL : Confirmed by: Dany Silva MD 29-Oct-2019 19:52:31
== END 2019-10-29 13:56 | disposition home or self-care (01) ==
LOC: ER 08:30
DX: K21.9 Gastro-esophageal reflux disease without esophagitis (principal); S39.012A Strain of muscle, fascia and tendon of lower back, initial encounter; X58.XXXA Exposure to other specified factors, initial encounter; R07.9 Chest pain, unspecified; R05 Cough; I48.91 Unspecified atrial fibrillation; I25.10 Atherosclerotic heart disease of native coronary artery without angina pectoris; Z79.01 Long term (current) use of anticoagulants; Z79.899 Other long term (current) drug therapy; Z95.2 Presence of prosthetic heart valve; Z95.1 Presence of aortocoronary bypass graft
CPT/HCPCS: 93005; 99285; 96375; 96365; 36415; 82553; 82550; 85025; 80053; 84484; 71045; 93010; J3490; A9270; J2800; J2270; J2405; J7030

== ENCOUNTER 2020-04-28 17:59 | Emergency (ER) | payer MEDICARE, BC ==
[2020-04-28] MEDS ORDERED: OXYMETAZOLINE HCL 0.05% NASAL SPRAY 15 ML BOTTLE NASL ONE (18:41)
--- NOTE | 2020-04-28 18:43 | ER Document Report ---
ED Medical Screen (RME) - General Chief Complaint: Nose Bleed Stated Complaint: NOSE BLEED (7 HRS) Time Seen by Provider: 04/28/20 18:37 Primary Care Provider: CHRIS CRUZ PA-C [Primary Care Provider] - Follow up as needed TRAVEL OUTSIDE OF THE [place] IN LAST 30 DAYS: No - HPI Notes: 04/28/20 18:42 64-year-old female to the emergency department with complaints of a left nostril nosebleed for the past 7 hours. She states that despite everything she is tried such as holding pressure to the nose and leaning back it continues to bleed. 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 She states this past week she is running about 3.9. She is just to get her INR checked again this Saturday. This is happened to her once before and she is required packing but it is been several years since then. She denies any chest pain shortness of breath or passing out. She does admit that her throat feels little sore because the blood is coming down the back of her throat and she is getting nauseated and throwing up the clots or splinting the back up. I performed a brief medical screening exam on the patient determined that the patient needs further evaluation and management by main side provider. I have placed initial orders to help expedite care. - Related Data Allergies/Adverse Reactions: No Known Allergies Allergy (Verified 01/31/19 12:27) Home Medications: Warfarin, Potassium, Lasix, Tikosyn, Magnesium, Pantaprazole, Brimanide, Toprol. Past Medical History - Past Medical History Cardiac Medical History: Reports: Hx Atrial Fibrillation, Hx Congestive Heart Failure, Hx Coronary Artery Disease - Chronic occlusion circumflex artery, Hx Heart Attack Denies: Hx Hypertension Pulmonary Medical History: Denies: Hx Asthma, Hx Bronchitis, Hx COPD, Hx Pneumonia Neurological Medical History: Denies: Hx Cerebrovascular Accident, Hx Seizures Renal/ Medical History: Denies: Hx Peritoneal Dialysis GI Medical History: Reports: Hx Gastroesophageal Reflux Disease Musculoskeltal Medical History: Reports Hx Arthritis - LT SHOULDER Past Surgical History: Reports: Hx Cardiac Catheterization, Hx Cardiac Surgery - x3 valve replacements, Hx Section - x2, Hx Cholecystectomy, Hx Coronary Artery Bypass Graft - X3, has a mechanical valve, Hx Orthopedic Surgery - left knee, Other - Cardiac ablation Anterior cervical discectomy Breast lumpectomy C- sectio - Immunizations Hx Diphtheria, Pertussis, Tetanus Vaccination: - UNSURE Physical Exam - Vital signs Vitals: Temp Pulse Resp BP Pulse Ox 98.3 F 103 H 18 109/67 100 04/28/20 18:09 04/28/20 18:09 04/28/20 18:09 04/28/20 18:09 04/28/20 18:09 Course - Vital Signs Vital signs: Temp Pulse Resp BP Pulse Ox 98.3 F 103 H 18 109/67 100 04/28/20 18:09 04/28/20 18:09 04/28/20 18:09 04/28/20 18:09 04/28/20 18:09 Doctor's Discharge - Discharge Referrals: CHRIS CRUZ PA-C [Primary Care Provider] - Follow up as needed
[2020-04-28 20:32] LABS: INTERNATIONAL RATION (INR) 3.41; PROTHROMBIN TIME 34.2 SEC (11.4-15.4)
[2020-04-28 20:33] LABS: PARTIAL THROMBOPLASTIN TIME 38.6 SEC (23.5-35.8)
[2020-04-28 20:37] LABS: ABSOLUTE BASOPHILS # (AUTO) 0.1 10^3/uL (0.0-0.2); ABSOLUTE EOSINOPHILS # (AUTO) 0.2 10^3/uL (0.0-0.6); ABSOLUTE LYMPHOCYTES (AUTO) 1.6 10^3/uL (0.5-4.7); ABSOLUTE MONOCYTES (AUTO) 0.4 10^3/uL (0.1-1.4); ABSOLUTE NEUT (AUTO) 6.2 10^3/uL (1.7-8.2); BASOPHILS % (AUTO) 0.7 % (0-2); EOSINOPHILS % (AUTO) 2.4 % (0-6); HEMATOCRIT 29.4 % (36.0-47.0); LYMPHOCYTES % (AUTO) 18.7 % (13-45); MEAN CORPUSCULAR HEMOGLOBIN 33.6 pg (27.0-33.4); MEAN CORPUSCULAR HGB CONC 34.1 g/dL (32.0-36.0); MEAN CORPUSCULAR VOLUME 98 fl (80-97); MONOCYTES % (AUTO) 4.4 % (3-13); PLATELET COUNT 377 10^3/uL (150-450); RED BLOOD COUNT 2.99 10^6/uL (3.72-5.28); RED CELL DISTRIBUTION WIDTH 31.8 % (11.5-14.0); SEGMENTED NEUTROPHILS % (AUTO) 73.8 % (42-78); TOTAL CELLS COUNTED % (AUTO) 100 %; WHITE BLOOD COUNT 8.4 10^3/uL (4.0-10.5)
[2020-04-28 21:17] LABS: ANISOCYTOSIS 4+; OVALOCYTES 2+; POIKILOCYTOSIS 2+; POLYCHROMASIA 1+; TEAR DROP CELLS SLIGHT; TOXIC GRANULATION 1+
[2020-04-28 21:18] LABS: PLATELET CLUMPS PRESENT; PLATELET COMMENT ADEQUATE; SCHISTOCYTES SLIGHT
[2020-04-28 22:28] VITALS: BP 114/43
[2020-04-28] MEDS ORDERED: TRANEXAMIC ACID INJ/PF 1,000 MG/10 ML SDV TOP ONE (23:07)
--- NOTE | 2020-04-28 23:14 | ER Document Report ---
ED General - General Chief Complaint: Nose Bleed Stated Complaint: NOSE BLEED (7 HRS) Time Seen by Provider: 04/28/20 18:37 Primary Care Provider: CHRIS CRUZ PA-C [Primary Care Provider] - Follow up as needed TRAVEL OUTSIDE OF THE [place] IN LAST 30 DAYS: No - HPI Notes: Patient is a 64-year-old female with a hx of prosthetic mitral valve on coumadin who presents with left-sided nosebleed that began at 11 AM this morning. She states she tried holding pressure to her nose and leaning back but it continued to bleed. Her therapeutic INR is 2.5-3.5 but two weeks ago she was running high at 3.9. She is scheduled to have a repeat INR on Saturday, May 02, 2020. Patient reports one prior episode which required packing but this occurred several years ago. She reports headache, nausea and spitting back up clots. She denies chest pain, shortness of breath and dizziness. Patient received Afrin IN upon arrival to the ED which helped with the bleeding. Patient reports an improvement in the post nasal drip and states she only has mild bleeding from one spot. - Related Data Allergies/Adverse Reactions: No Known Allergies Allergy (Verified 01/31/19 12:27) Home Medications: Warfarin, Potassium, Lasix, Tikosyn, Magnesium, Pantaprazole, Brimanide, Toprol. 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, Hx Heart Attack Denies: Hx Hypertension Pulmonary Medical History: Denies: Hx Asthma, Hx Bronchitis, Hx COPD, Hx Pneumonia Neurological Medical History: Denies: Hx Cerebrovascular Accident, Hx Seizures Renal/ Medical History: Denies: Hx Peritoneal Dialysis GI Medical History: Reports: Hx Gastroesophageal Reflux Disease Musculoskeletal Medical History: Reports Hx Arthritis - LT SHOULDER Past Surgical History: Reports: Hx Cardiac Catheterization, Hx Cardiac Surgery - x3 valve replacements, Hx Section - x2, Hx Cholecystectomy, Hx Coronary Artery Bypass Graft - X3, has a mechanical valve, Hx Orthopedic Surgery - left knee, Other - Cardiac ablation Anterior cervical discectomy Breast lumpectomy C- sectio - Immunizations Hx Diphtheria, Pertussis, Tetanus Vaccination: - UNSURE Hx Pneumococcal Vaccination: 08/05/17 Review of Systems - Review of Systems Constitutional: No symptoms reported EENT: See HPI Cardiovascular: No symptoms reported Respiratory: No symptoms reported Gastrointestinal: See HPI Genitourinary: No symptoms reported Female Genitourinary: No symptoms reported Musculoskeletal: No symptoms reported Skin: No symptoms reported Hematologic/Lymphatic: No symptoms reported Neurological/Psychological: See HPI Physical Exam - Vital signs Vitals: Temp Pulse Resp BP Pulse Ox 98.3 F 103 H 18 109/67 100 04/28/20 18:09 04/28/20 18:09 04/28/20 18:04/28/20 18:04/28/20 18:09 Interpretation: Normal - Notes Notes: PHYSICAL EXAMINATION: VITALS: Vitals reviewed and within normal limits. GENERAL: Well-appearing, well-nourished and in no acute distress. HEAD: Atraumatic, normocephalic. EYES: Pupils equal round and reactive to light, extraocular movements intact, sclera anicteric, conjunctiva are normal. ENT: Nares patent, with blood in the left nare. Small active bleed anteriorly. No bleeding noted on the right side. no blood or bleeding seen in the oropharynx. Moist mucous membranes. LUNGS: Nonlabored respirations. No accessory muscle use. EXTREMITIES: Normal range of motion, no pitting or edema. No cyanosis. NEUROLOGICAL: No focal neurological deficits. Moves all extremities spontaneously and on command. Normal gait. PSYCH: Normal mood, normal affect. SKIN: Warm, Dry, normal turgor, no rashes or lesions noted. Course - Re-evaluation Re-evalutation: Patient is a 64-year-old female with a history of a prosthetic mitral valve on Coumadin who presents with left-sided nosebleed that began at 11 AM this morning. Upon arrival to the ED, patient was given Afrin IN which improved her symptoms but did not completely resolve her bleeding. Vital signs within normal limits. On exam, small area of active bleeding anteriorly in the left nare. No blood seen in the oropharynx. Hemoglobin low at 10.0. INR therapeutic for her prosthetic value at 3.4. TXA IN given and patient reassessed. Bleeding has stopped and a clot could be visualized in the left nare. Patient will be discharged home with return precautions. Patient instructed to follow up with her PCP at her scheduled appointment this coming Saturday. - Vital Signs Vital signs: Temp Pulse Resp BP Pulse Ox 98.4 F 83 18 114/43 L 100 04/28/20 22:17 04/28/20 22:17 04/28/20 18:09 04/28/20 22:17 04/28/20 22:17 - Laboratory Result Diagrams: 04/28/20 19:45 Laboratory results interpreted by me: 04/28/20 04/28/20 19:45 19:45 RBC 2.99 L Hgb 10.0 L Hct 29.4 L MCV 98 H MCH 33.6 H RDW 31.8 H PT 34.2 H APTT 38.6 H Discharge - Discharge Clinical Impression: Epistaxis, Bleeding on Coumadin Condition: Stable Disposition: HOME, SELF-CARE Additional Instructions: Nosebleed Instructions There is a significant chance of re-bleeding following a nosebleed. Proper care makes this less likely. Do not touch the nose for 24 hours. Do not blow the nose forcefully for one week. After 24 hours, gently apply Vaseline ointment to both nostrils with the tip of a finger, three times a day, for one week. It's normal to have a bloody mucous discharge for a few days. If active bleeding recurs, blow all the blood from the nose, then sit quietly and pinch the nose as firmly as possible for 10 minutes. If this does not stop the bl eeding, return for further care. If packing was left in the nose and it starts to come out of the nostril, either tuck it back in or cut it off. Don't pull it out. Return for recheck and removal of the packing when instructed. Persons with frequent nosebleeds should avoid aspirin (unless prescribed for another reason). Humidity in the bedroom, and petroleum jelly applied to the nostrils at night may help. Referrals: CHRIS CRUZ PA-C [Primary Care Provider] - Follow up as needed
== END 2020-04-29 00:02 | disposition home or self-care (01) ==
LOC: ER 17:59
DX: R04.0 Epistaxis (principal); R51 Headache; R11.0 Nausea; R04.2 Hemoptysis; R09.82 Postnasal drip; Z95.2 Presence of prosthetic heart valve; Z79.01 Long term (current) use of anticoagulants; Z79.899 Other long term (current) drug therapy; I50.9 Heart failure, unspecified; I25.10 Atherosclerotic heart disease of native coronary artery without angina pectoris
CPT/HCPCS: 99283; 36415; 85025; 85610; 85730; A9270; J3490

== ENCOUNTER → 2020-08-04 | Outpatient (CLI) | payer MEDICARE, BC ==
[2020-08-04 09:54] VITALS: BP 94/50
--- NOTE | 2020-08-04 09:54 | ER RDC ASSESSMENT REPORT ---
Intake - In the Last 14 days Have you traveled outside [place]?: No Have you been in close contact with someone CONFIRMED: Yes Worked in Healthcare?: No - Symptoms Subjective Fever([place] feverish): No Chills: No Muscule Aches: No Runny Nose: No Sore Throat: No Cough (New or worsening chronic cough): Yes Shortness of breath: No Nausea or Vomiting: No Headache: No Abdominal Pain: No Diarrhea(3 or more loose stools in last 24 hours): No - Do you have any of the following Chronic lung disease: Asthma or emphysema or COPD: No Cystic Fibrosis: No Diabetes: No High Blood Pressure: No Cardiovascular Disease: Yes Chronic Kidney Disease: No Chronic Liver Disease: No Chronic blood disorder like Sickle Cell Disease: No Weak immune system due to disease or medication: No Neurologic condition that limits movement: No Developmental delay - Moderate to Severe: No Recent (within past 2 weeks) or current : No Morbid Obesity (>100 pounds over ideal weight): No Obesity Comment: Height 5 feet 2 inches weight 126 pounds - Objective Temperature: 98.2 F Pulse Rate: 69 Respiratory Rate: 16 Blood Pressure: 94/50 O2 Sat by Pulse Oximetry: 98 Objective: Given above, testing performed: If Testing Performed: Test Specimen Type Sent to General - General Information source: Patient Notes: At [facility] for Covid testing patient reports had tested positive for Covid after exposure to somebody who has been +10 days ago patient is being retested for Covid so that she can follow-up with her specialist for blood work ending hemoglobin and an INR. Patient reports still has a cough left over from her initial symptoms but reports improving. Patient's PCP is with [facility] in [facility]. Patient has been following up with Mckenzie brown and her specialists. - Related Data Allergies/Adverse Reactions: No Known Allergies Allergy (Verified 01/31/19 12:27) Past Medical History - General Information source: Patient - Social History Smoking Status: Former Smoker - quit 32 years ago Family History: Reviewed & Not Pertinent - Past Medical History Cardiac Medical History: Reports: Hx Atrial Fibrillation, Hx Congestive Heart Failure, Hx Coronary Artery Disease - Chronic occlusion circumflex artery, Hx Heart Attack Denies: Hx Hypertension Pulmonary Medical History: Denies: Hx Asthma, Hx Bronchitis, Hx COPD, Hx Pneumonia Neurological Medical History: Denies: Hx Cerebrovascular Accident, Hx Seizures Renal/ Medical History: Denies: Hx Peritoneal Dialysis GI Medical History: Reports: Hx Gastroesophageal Reflux Disease Musculoskeletal Medical History: Reports Hx Arthritis - LT SHOULDER Past Surgical History: Reports: Hx Cardiac Catheterization, Hx Cardiac Surgery - x3 valve replacements, Hx Section - x2, Hx Cholecystectomy, Hx Coronary Artery Bypass Graft - X3, has a mechanical valve, Hx Orthopedic Surgery - left knee, Other - Cardiac ablation Anterior cervical discectomy Breast lumpectomy C- sectio Physical Exam - General General appearance: Appears well, Alert In distress: None Notes: PHYSICAL EXAMINATION: GENERAL: Well-appearing and in no acute distress. HEAD: Atraumatic, normocephalic. EYES: sclera anicteric, conjunctiva are normal. ENT: nares patent. Moist mucous membranes. NECK: Normal range of motion, supple without lymphadenopathy LUNGS: CTAB and equal. No wheezes rales or rhonchi. Respirations even and unlabored lung sounds clear. HEART: Regular rate and rhythm without murmurs ABDOMEN: Soft, nontender, normal bowel sounds, no guarding. EXTREMITIES: Normal range of motion, no pitting edema. No cyanosis. NEUROLOGICAL: Cranial nerves grossly intact. Normal speech. Normal gait. PSYCH: Normal mood, normal affect. SKIN: Warm, Dry, normal turgor, no rashes or lesions noted Diagnostic Results Laboratory Results: Pending Covid testing results. Patient provided instructions regarding Covid to include: As a person under investigation for Covid 19, the [place] department of Health and Human Services, division of public health advises you to adhere to the following guidance until your test results are reported to you. If your test result is positive, you will receive additional information from your provider and your local health department at that time. Remain at home until you are cleared by the health provider or public health authorities. Keep a log of visitors to your home, notify any visitors to your home of your isolation status. If you plan to move to a new address or leave the county, notify the local health department in your County. Call your doctor or seek care if you have an urgent medical need. Before seeking medical care, call ahead to get instructions from the provider before arriving at the medical office clinic or hospital. Notify them that you are being tested for the virus that causes Covid 19 so that arrangements can be made, as necessary, to prevent transmission to others in the healthcare setting. Next, notify the local health department in your county. If a medical emergency arises and you need to call 911, inform the first responders that you are being tested for the virus that causes Covid 19. Next, notify the local health department in your county. Patient Education/Counseling Counseling/Education: Patient presents with upper respiratory symptoms worrisome for possible Covid 19. Patient does not have emergency worring symptoms such as difficulty breathing, shortness of breath, chest pain, pressure, confusion or cyanosis. Patient appears suitable for discharge. Patient instructed to follow-up with her PCP Mckenzie brown at [facility] in [place]. Patient's vital signs are stable and patient is nontoxic in appearance. Good return precautions have been discussed with patient, patient verbalized understanding and is agreeable with discharge plan of care at this time. RDC Discharge - Discharge Clinical Impression: Encounter for screening laboratory testing for COVID-19 virus Condition: Stable Disposition: Home; Selfcare
== END ==
LOC: RDC 09:11
PROVIDERS: ATTEND Nurse Practitioner Family
DX: U07.1 COVID-19 (principal); R05 Cough; I25.10 Atherosclerotic heart disease of native coronary artery without angina pectoris; Z95.1 Presence of aortocoronary bypass graft; I70.8 Atherosclerosis of other arteries; K21.9 Gastro-esophageal reflux disease without esophagitis; Z87.891 Personal history of nicotine dependence; I25.2 Old myocardial infarction
CPT/HCPCS: U0003; C9803; 87635; 99201; 99211